=== PATIENT | female | born 1985 | race Asian ===

== ENCOUNTER → 2024-01-17 09:31 | Outpatient (REF) | payer OTHER, SELFPAY | LOC: RAD 09:31 | PROVIDERS: ATTENDING PHYSICIAN Chiropractor; FAMILY PHYSICIAN Family Medicine | DX: M99.01 Segmental and somatic dysfunction of cervical region (principal); M99.03 Segmental and somatic dysfunction of lumbar region | CPT/HCPCS: 72050; 72110 ==

== ENCOUNTER 2024-04-08 21:34 | Emergency (ER) | payer OTHER, SELFPAY ==
[2024-04-08 21:43] VITALS: BP 112/71
[2024-04-08 21:58] LABS: % Eosinophils 8.7 % (0-6); % Immature Granulocytes 0.2 % (0-0.5); % Lymphocytes 39.8 % (20.5-51.1); % Monocytes 4.1 % (1.7-9.3); % Neutrophils 46.2 % (42.2-75.2); Absolute Basophils 0.1 10^3/uL (0-0.2); Absolute Eosinophils 0.9 10^3/uL (0-0.7); Absolute Lymphocytes 3.9 10^3/uL (1.2-3.4); Absolute Monocytes 0.4 10^3/uL (0.1-0.6); Absolute Neutrophils 4.5 10^3/uL (1.4-6.5); Hematocrit 37.2 % (37.0-47.0); Mean Corp Hgb Conc. 34.9 g/dL (33.0-37.0); Mean Corpuscular Hgb 30.6 pg (27.0-31.0); Mean Corpuscular Volume 87.5 fL (81.0-99.0); Nucleated Red Blood Cells % 0 %; Platelet Count 264 10^3/uL (130-400); Red Blood Cell Count 4.25 10^6/uL (4.20-5.40); Red Cell Dist. Width 12.3 % (11.5-14.5); White Blood Cell Count 9.8 10^3/uL (4.8-10.8)
[2024-04-08 22:15] LABS: HCG, Serum Qualitative Screen Negative
[2024-04-08 22:21] LABS: ALT (SGPT) 17 U/L (0-35); AST (SGOT) 28 U/L (14-36); Albumin 4.8 g/dl (3.5-5.0); Alkaline Phosphatase 78 U/L (38-126); Blood Urea Nitrogen 19 mg/dl (7-17); Calcium 9.9 mg/dl (8.4-10.2); Carbon Dioxide 27 mmol/L (22-30); Chloride 102 mmol/L (98-107); Glucose 107 mg/dl (70-99); Potassium 4.5 mmol/L (3.5-5.1); Sodium 139 mmol/L (135-145); Total Bilirubin 0.3 mg/dl (0.2-1.3); Total Protein 7.5 g/dl (6.3-8.2); eGFR > 60.00
[2024-04-08 22:22] LABS: Lipase 70 U/L (23-300)
[2024-04-08 22:39] LABS: Urine Albumin Negative (Neg - Trace); Urine Bilirubin Negative (Negative); Urine Character Clear (Clear); Urine Color Yellow; Urine Glucose Negative (Negative); Urine Ketone Negative (Negative); Urine Leukocyte Trace (Negative); Urine Nitrite Negative (Negative); Urine Occult Blood 2+ (Negative); Urine Specific Gravity 1.005 (<1.030); Urine Urobilinogen Negative (Neg - 1+)
[2024-04-08 22:46] LABS: Urine Squamous Cell 0-2 /LPF (Few)
[2024-04-08 22:47] LABS: Urine Bacteria Few (Negative); Urine White Cell 0-2 /HPF (0-5)
--- NOTE | 2024-04-09 00:44 | ED.GENMED ---
History of Present Illness
General
Chief Complaint: Abdominal Pain
Source: patient
Exam Limitations: none
Time Seen by Provider: 04/09/24 00:11
Travel History
Have you had any contact with someone who has COVID-19?: No
Do you have any symptoms of coronavirus? Fever > 100 degrees, chills, cough, shortness of breath, sore throat, loss of taste or smell, muscle aches, or headache?: No
History of Present Illness
History of Present Illness:
This is a 39 year old female that comes in with c/o abd pain. State that about 3 weeks ago she had a stomach bug. States that she had cramping and diarrhea at that time. States that this passed. State that she then started with nausea and abd pain
today after a smack at 3pm. States that from 4-10:30pm she had severe pain. State that the cramping is a little better at this time. States that her BM's have been loose like as if she had IBS but has never been diagnosed with this. States that she
felt lightheaded and nauseated with the abd pain. Denies any fever, chills, chest pain, SOB, vomiting, diarrhea, headache, urinary burning.
Past History
Past History
ED Past Medical History: Psychiatric (Anxiety, ) and Other (Ear infections, )
ED Past Surgical History: Appendectomy
Social History
Tobacco: Non-smoker
Alcohol: None
Personal:
Living: with family
Review of Systems
Review of Systems
All Other Systems: ROS reviewed and negative except as documented in HPI and ROS
Constitutional: Reports no symptoms; Denies fever or chills
EENT: Reports no symptoms
Respiratory: Reports no symptoms; Denies cough or trouble breathing
Cardiac: Reports no symptoms; Denies chest pain
ABD/GI: Reports abdominal pain and nausea; Denies vomiting or diarrhea
: Reports no symptoms; Denies dysuria, frequency or urgency
Musculoskeletal: Reports no symptoms
Skin: Reports no symptoms
Neurological: Reports other (Lightheaded); Denies dizzy or headache
Psychiatric: Reports no symptoms
Phy Exam
General Physical Exam
General Presentation: well appearing and no apparent distress
General age: appears stated age
General Skin: warm and dry
General Habitus: normal
General Mental: alert
General Hydration: appears well hydrated
ENT Exam
ENT Exam: TM's normal, pharynx normal and neck supple
Eye Exam
Eye Exam: EOMI
Cardiovascular Exam
Cardiovascular Exam: regular rate/rhythm, no edema, no murmur and normal peripheral pulses
Pulmonary Exam
Pulmonary Exam: lungs clear, no respiratory distress, no rales, chest non tender, no crackles, no rhonchi, no wheezing and no cough
Gastrointestinal Exam
Gastrointestinal Exam: normal bowel sounds, soft, no organomegaly, no pulsatile mass, non distended and tender (Mid abd tenderness with palpation)
Musculoskeletal Exam
Musculoskeletal Exam: full ROM and no edema
Skin Exam
Skin Exam: normal color, warm/dry, no rash and no petechia
Course
Orders/Labs/Results
Orders:
Orders
04/08/24 21:46
Test Result ONCE
04/08/24 21:49
Complete Blood Count/With Diff Urgent
Comprehensive Metabolic Panel Urgent
HCG, Serum Qualitative Screen Urgent
Lipase Urgent
04/08/24 22:22
Urinalysis Reflex To Culture Urgent
Date Specimen was Collected: 04/08/24
Time Specimen was Collected: 21:46
Urine Microscopic Reflex Cult Urgent
04/09/24 00:30
CT Abd/pel W Iv And Oral Contr Urgent
Comment:
Reason For Exam: Mid abd pain
0.9% Sodium Chloride 1000 ml [Nss] 1,000 ml IV BOLUS
Iohexol [Omnipaque] See Protocol PO NOW STA
Pantoprazole [Protonix IV] 40 mg IV NOW STA
04/09/24 01:07
Ondansetron Injectable [Zofran] 4 mg .ROUTE .STK-MED ONE
04/09/24 01:33
Ondansetron Injectable [Zofran] 4 mg IV NOW STA
Abnormal Lab Results
04/08/24 04/08/24
21:49 22:22
Absolute Lymphs (auto) 3.9 H 10^3/uL
(1.2-3.4)
Absolute Eos (auto) 0.9 H 10^3/uL
(0-0.7)
Eosinophils % 8.7 H %
(0-6)
BUN 19 H mg/dl
(7-17)
Glucose 107 H mg/dl
(70-99)
Ur Occult Blood Reflex 2+ A
(Negative)
Leukocyte Esterase Rfl Trace A
(Negative)
Urine RBC 3-6 A /HPF
(0-2)
Urine Bacteria (Reflex) Few A
(Negative)
04/08/24 21:49
04/08/24 21:49
Slight Dehydration. Glucose nonfasting. Urine negative for infection (patient has her menses right now), Lipase normal at 40, HCG negative.
Vital Signs
Initial and Last Documented VS:
Initial Vital Signs
Temp Pulse Resp BP Pulse Ox
98.4 F 67 17 112/71 99
04/08/24 21:43 04/08/24 21:43 04/08/24 21:43 04/08/24 21:43 04/08/24 21:43
Last Documented Vital Signs
Temp Pulse Resp BP Pulse Ox
98.4 F 59 18 108/69 99
04/08/24 21:43 04/09/24 01:39 04/09/24 01:39 04/09/24 01:39 04/09/24 01:39
MDM/Problems Addressed
Differential Diagnosis Includes:
Enteritis, Gastritis, Colitis
MDM/Problems Addressed:
This is a 39 year old female that comes in with c/o abd pain. States that she had been sick 3 weeks ago and got better. Then she started with severe pain tonight.
Will get labs, Urine and CT scan.
Back into see patient. Explained that her blood work shows slight Dehydration. Her urine is negative for infection and her CT scan shows constipation. There is some gallbladder distention but no right upper abd tenderness. Encouraged patient to
increase her water intake. Follow up with the family doctor and if her discomfort continues she may want to see a GI specialist. Will discharge patient home.
Chronic conditions affecting care:
NA
Acute Exacerbation and/or Progression of Chronic Illness:
NA
*Radiology
Radiology exam reviewed: radiology read reviewed (CT night hawk- Constipation without bowel obstruction or perforatio. Gallbladder is distended without stones; consider ultrasound if clinically indicated. NO pancreatitis. Stomach decompressed. No
obstructing renal stone. Tampon in the vagina. )
*Pulse Oximetry
Patient hypoxic: no
*EKG
Interpreted by ED Provider?: NA
Rate: EKG- N/A
*Base Wad Operator Adjuster Interpretation
Rate: Base Wad Operator Adjuster- N/A
*Critical Care Note
Total Time (30-74mins, 75-104mins- exclusive of procedures): Not Applicable
ED Attending Note
-
Portions of this chart may have been created with voice recognition software.� Occasional wrong word or��sound alike� substitutions may have occurred due to the inherent limitations of voice recognition software.
Discharge Plan
Departure
Patient Disposition: Home (Routine Discharge)
Date of Disposition: 04/09/24
Time of Disposition: 04:40
Patient with high blood pressure during this ER visit?: No
Condition: Good
Covid-19: Not Applicable
Discharge Problem:
Abdominal pain, Constipation
Instructions: Constipation, Adult (DC), Abdominal Pain
Prescriptions:
No Action
Formula 1 TAB tablet
1 tab PO DAILY
acetaminophen 325 mg Tablet
650 mg PO Q4HPRN PRN (Reason: mild pain) Qty: 0 0RF
ibuprofen 600 mg Tablet
600 mg PO Q6HPRN PRN (Reason: moderate pain/cramps) Qty: 0 0RF
Referrals:
Reggie Dejesus MD [Family Provider] - Follow up in 2-3 days
Maya Hyatt MD [Active] - Call in 1-3 days for appt
Activity Restrictions/Additional Instructions:
As discussed, your blood work shows you were slightly dehydrated. Your CT scan shows constipation and that your gallbladder is a little distended. Please increase your water intake to 8-8oz glasses daily. Follow up with the family doctor and the GI
specialist for further evaluation. IF YOU HAVE INCREASED OR CHANGING PAIN, FEVER, VOMITING OR YOU HAVE ANY OTHER CONCERNS PLEASE RETURN TO THE EMERGENCY ROOM.
Interventions
Interventions:
*Risk Screen - Suicide Last Done: 04/08/24 21:43
*General Assessment Last Done: 04/08/24 21:43
*Neglect/Abuse Screening Last Done: 04/08/24 21:43
ED- Fall Risk Assessment Last Done: 04/09/24 01:39
*ED COVID-19 Vaccine History Last Done: 04/08/24 21:43
EK-Udyndw-Xnhbnixogo Assessment Last Done: 04/09/24 01:39
Discharge Date and Time
Print Language: CITIZEN [place]
[2024-04-09 01:20] VITALS: BMI 21.0
[2024-04-09] MEDS: OMNIPAQUE 50 ML PO (01:29)
[2024-04-09] MEDS: NSS 1000 IV (01:32)
[2024-04-09] MEDS: PROTONIX IV 40 MG IV (01:32)
[2024-04-09] MEDS: ZOFRAN 4 MG IV (01:33)
[2024-04-09 01:39] VITALS: BP 108/69
[2024-04-09 05:00] VITALS: BP 103/58
== END 2024-04-09 05:04 | disposition home or self-care (01) ==
LOC: EMR 21:34
PROVIDERS: Emergency Medicine; EMERGENCY PHYSICIAN Student in an Organized Health Care Education/Training Program; FAMILY PHYSICIAN Family Medicine
DX: K59.00 Constipation, unspecified (principal); R10.10 Upper abdominal pain, unspecified; R11.0 Nausea; F41.9 Anxiety disorder, unspecified; R19.7 Diarrhea, unspecified; E86.0 Dehydration; K82.8 Other specified diseases of gallbladder
CPT/HCPCS: 99285; 96374; 96375; 74177; 80053; 81003; 81015; 83690; 84703; 85025; Q9967

== ENCOUNTER 2024-07-28 13:08 | Outpatient (RCR) | payer OTHER, SELFPAY | END 2024-07-28 23:59 | disposition home or self-care (01) | LOC: RPT 13:08 | PROVIDERS: ATTENDING PHYSICIAN Obstetrics & Gynecology Gynecology; FAMILY PHYSICIAN Family Medicine | DX: M62.89 Other specified disorders of muscle (principal); N81.10 Cystocele, unspecified; N39.3 Stress incontinence (female) (male); R35.0 Frequency of micturition; Z73.6 Limitation of activities due to disability | CPT/HCPCS: 97163; 97530 ==

== ENCOUNTER 2024-09-09 11:30 | Outpatient (RCR) | payer OTHER, SELFPAY | END 2024-09-09 23:59 | disposition home or self-care (01) | LOC: RPT 11:30 | PROVIDERS: ATTENDING PHYSICIAN Obstetrics & Gynecology Gynecology; FAMILY PHYSICIAN Family Medicine | DX: M62.89 Other specified disorders of muscle (principal); N81.10 Cystocele, unspecified; N39.3 Stress incontinence (female) (male); R35.0 Frequency of micturition; Z73.6 Limitation of activities due to disability | CPT/HCPCS: 97014; 97110; 97112; 97530 ==

== ENCOUNTER 2024-10-02 08:58 | Outpatient (RCR) | payer OTHER, SELFPAY | END 2024-10-02 23:59 | disposition home or self-care (01) | LOC: RPT 08:58 | PROVIDERS: ATTENDING PHYSICIAN Obstetrics & Gynecology Gynecology; FAMILY PHYSICIAN Family Medicine | DX: M62.89 Other specified disorders of muscle (principal); N81.10 Cystocele, unspecified; N39.3 Stress incontinence (female) (male); R35.0 Frequency of micturition; Z73.6 Limitation of activities due to disability | CPT/HCPCS: 97110; 97530 ==

== ENCOUNTER 2024-11-06 08:24 | Outpatient (RCR) | payer OTHER, SELFPAY | END 2024-11-06 23:59 | disposition home or self-care (01) | LOC: RPT 08:24 | PROVIDERS: ATTENDING PHYSICIAN Obstetrics & Gynecology Gynecology; FAMILY PHYSICIAN Family Medicine | DX: M62.89 Other specified disorders of muscle (principal); N81.10 Cystocele, unspecified; N39.3 Stress incontinence (female) (male); R35.0 Frequency of micturition; Z73.6 Limitation of activities due to disability | CPT/HCPCS: 97014; 97110; 97112; 97140; 97530 ==

== ENCOUNTER 2025-01-06 11:55 | Outpatient (RCR) | payer OTHER, SELFPAY | END 2025-01-06 23:59 | disposition home or self-care (01) | LOC: RPT 11:55 | PROVIDERS: ATTENDING PHYSICIAN Obstetrics & Gynecology Gynecology; FAMILY PHYSICIAN Family Medicine | DX: M62.89 Other specified disorders of muscle (principal); N81.10 Cystocele, unspecified; N39.3 Stress incontinence (female) (male); R35.0 Frequency of micturition; Z73.6 Limitation of activities due to disability | CPT/HCPCS: 97014; 97110; 97112; 97530 ==

== ENCOUNTER 2025-02-05 11:54 | Outpatient (RCR) | payer OTHER, SELFPAY | END 2025-02-06 06:24 | disposition home or self-care (01) | LOC: RPT 11:54 | PROVIDERS: ATTENDING PHYSICIAN Obstetrics & Gynecology Gynecology; FAMILY PHYSICIAN Family Medicine | DX: M62.89 Other specified disorders of muscle (principal); N81.10 Cystocele, unspecified; N39.3 Stress incontinence (female) (male); R35.0 Frequency of micturition; Z73.6 Limitation of activities due to disability | CPT/HCPCS: 97110; 97112; 97530 ==

== ENCOUNTER → 2025-03-21 13:35 | Outpatient (REF) | payer OTHER, SELFPAY | LOC: WDC 13:35 | PROVIDERS: ATTENDING PHYSICIAN Obstetrics & Gynecology Gynecology; FAMILY PHYSICIAN Family Medicine | DX: Z12.31 Encounter for screening mammogram for malignant neoplasm of breast (principal) | CPT/HCPCS: 77063; 77067 ==